=== PATIENT | female | born 1965 | race Two or more races ===

== ENCOUNTER 2021-12-02 16:37 | Emergency (ER) | payer SELFPAY ==
[~2021-12-02] VITALS: Ht 157.5 cm; Wt 77.1 kg
--- NOTE | 2021-12-02 17:00 | NUR ---
Ambulatory on arrival/steady able to sit in chair
[2021-12-02 17:04] VITALS: BP 115/72
--- NOTE | 2021-12-02 18:00 | NUR ---
Pt No Longer in Room- Eloped
--- NOTE | 2021-12-02 18:14 | NUR ---
Pt No Longer in Room- Eloped
== END 2021-12-02 18:18 | disposition home or self-care (01) ==
LOC: ER 16:49
DX: Z53.21 Procedure and treatment not carried out due to patient leaving prior to being seen by health care provider (principal); F10.129 Alcohol abuse with intoxication, unspecified; I10 Essential (primary) hypertension; E11.9 Type 2 diabetes mellitus without complications; F32.A Depression, unspecified; Y90.9 Presence of alcohol in blood, level not specified